=== PATIENT | female | born 1995 | race Two or more races ===

== ENCOUNTER 2017-03-10 12:14 | Emergency (ER) | payer OTHER ==
[2017-03-10 12:38] VITALS: RESP 16; TEMP 99.9
[2017-03-10 13:10] LABS: HEMATOCRIT 35 % (35-47); MEAN CORPUSCULAR HGB CONC 34.3 gm/dl (32.0-36.0); MEAN CORPUSCULAR VOLUME 82 fL (81-99)
[2017-03-10 13:11] LABS: CALCIUM 8.3 mg/dl (8.5-10.1); POTASSIUM 3.1 mMol/L (3.5-5.1)
[2017-03-10 13:29] LABS: BASOPHILS % (MANUAL) 0 % (0-3); EOSINOPHILS % (MANUAL) 0 % (0-9); LYMPHOCYTES % (MANUAL) 3 % (10-50); NORMAL RBCS PRESENT
[2017-03-10] MEDS ORDERED: CEFTRIAXONE 1 GM PDS 2 GM in SODIUM CHLORIDE 0.9% 100 ML 100 ML IV ONE (13:38)
[2017-03-10] MEDS ORDERED: CEFTRIAXONE 1 GM PDS ONE (13:42)
[2017-03-10] MEDS ORDERED: SODIUM CHLORIDE 0.9% FLUSH 10 ML SOL IV PRN (13:55)
[2017-03-10 14:09] VITALS: BP 111/69; PULSE 68; O2SAT 96
== END 2017-03-10 14:26 | disposition home or self-care (01) | DRG 153 ==
LOC: ED 12:14
DX: J39.0 Retropharyngeal and parapharyngeal abscess (principal)
CPT/HCPCS: 36415; 70491; 80048; 85007; 85027; 86308; 87430; 96365; 99284; J0696; Q9967